=== PATIENT | male | born 1990 | race Caucasian/White ===

== ENCOUNTER 2018-10-11 06:44 | Outpatient (CLI) | payer MEDICAID ==
--- NOTE | 2018-10-12 08:43 | XRAY Report ---
Reason: DORSOPATHY UNSPECIFIED, M43.9 Procedure Date: 10/11/2018 Accession Number: [id number] / [id number] Procedure: XRS - Thoracic Spine 2 View CPT Code: FULL RESULT: EXAM: THORACIC SPINE RADIOGRAPHY EXAM DATE: 10/11/2018 09:20 AM. CLINICAL HISTORY: DORSOPATHY UNSPECIFIED, M43. 9. COMPARISON: None. TECHNIQUE: 2 views. FINDINGS: Alignment: Normal. No spondylolisthesis or scoliosis. Bones: No fractures or bone lesions. Disks: Normal. Disk heights are maintained. Soft Tissues: Normal. The visualized lungs and cardiomediastinal silhouette are normal. IMPRESSION: Normal thoracic spine radiography. [facility]
--- NOTE | 2018-10-12 08:54 | XRAY Report ---
Reason: DORSOPATHY UNSPECIFIED, MM43.9 Procedure Date: 10/11/2018 Accession Number: [id number] / [id number] Procedure: XRS - Lumbar Spine 2 View CPT Code: FULL RESULT: EXAM: LUMBOSACRAL SPINE RADIOGRAPHY EXAM DATE: 10/11/2018 09:20 AM. CLINICAL HISTORY: DORSOPATHY UNSPECIFIED, MM43. 9. COMPARISONS: None. TECHNIQUE: Two Views. FINDINGS: Alignment: Normal. No spondylolisthesis or scoliosis. Bones: Five [id number] lumbar vertebral bodies are present. No acute fracture identified. There is minor right lateral wedging morphology superior endplate of the L2 vertebral body perhaps sequela of remote injury. Disks: Normal. Disk heights are maintained. Facets: No degenerative changes. Sacroiliac Joints: Unremarkable. Soft Tissues: Normal. The visualized bowel gas pattern is normal. IMPRESSION: Minor right lateral wedging morphology superior endplate of L2. Question sequela of remote injury. [facility]
== END 2018-10-11 06:45 | disposition home or self-care (01) ==
LOC: DI.S 06:44
PROVIDERS: ATTEND Naturopath
DX: M48.56XA Collapsed vertebra, not elsewhere classified, lumbar region, initial encounter for fracture (principal)
CPT/HCPCS: 72070; 72100

== ENCOUNTER 2018-12-30 13:09 | Outpatient (CLI) | payer MEDICAID ==
--- NOTE | 2018-12-31 23:37 | XRAY Report ---
Reason: LEFT ANKLE PAIN, CHRONIC Procedure Date: 12/30/2018 Accession Number: [id number] / [id number] Procedure: XRS - Ankle 3 View LT CPT Code: Final Report FULL RESULT: EXAM: LEFT ANKLE RADIOGRAPHY EXAM DATE: 12/30/2018 01:45 PM. CLINICAL HISTORY: LEFT ANKLE PAIN, CHRONIC. COMPARISON: None. TECHNIQUE: 3 views. FINDINGS: Bones: No fractures or bone lesions. Prominent osteophyte at the dorsal aspect of the navicular bone, identified on the lateral view. Joints: No effusion. No subluxations. The ankle mortise is normally aligned. Soft Tissues: No significant soft tissue swelling. IMPRESSION: 1. No acute abnormalities. 2. Prominent osteophyte at the dorsal aspect of the navicular bone, identified on the lateral view. [facility]
== END 2018-12-30 13:10 | disposition home or self-care (01) ==
LOC: DI.S 13:09
PROVIDERS: ATTEND Naturopath
DX: M25.775 Osteophyte, left foot (principal)

== ENCOUNTER 2023-03-06 08:00 | Outpatient (CLI) | payer MEDICAID ==
--- NOTE | 2023-03-06 16:48 | XRAY Report ---
PROCEDURE: Hand 3+V RT INDICATIONS: RIGHT HAND PAIN/FB TECHNIQUE: 3 views of the hand(s) acquired. COMPARISON: None. FINDINGS: Bones: No fractures or dislocations. No suspicious bony lesions. Soft tissues: No suspicious soft tissue calcifications or masses. IMPRESSION: No acute bony abnormality. No retained radiopaque foreign body. Reviewed by: Abram Smith MD on 03/06/2023 3:47 PM [place] Approved by: Abram Smith MD on 03/06/2023 3:47 PM [place] Station ID: [id number]
== END 2023-03-06 23:59 | disposition home or self-care (01) ==
LOC: DI.S 08:00
PROVIDERS: ATTEND Emergency Medicine
DX: M79.641 Pain in right hand (principal)